=== PATIENT | female | born 1975 | race Caucasian/White ===

== ENCOUNTER 2019-08-08 21:32 | Emergency (ER) | payer BC, MEDICAID ==
[~2019-08-08] VITALS: Ht 152.4 cm; Wt 77.1 kg
[~2019-08-08 21:32] MED LIST: AZIT200S PO; [UNRECOGNIZED DRUG - CODE] PO
--- NOTE | 2019-08-08 22:00 | NUR ---
BIBHUSBAND. HEADACHE, NAUSEA, VOMITING X 2PM. DIFFICULTY BREATHING. PT REPORTS BEING ANXIOUS. VSS. NO ACUTE DISTRESS NOTED. AWAITING MD FOR EVAL.
[2019-08-08] MEDS ORDERED: ONDANSETRON HCL/PF 4 MG/2 ML VIAL ONE (22:15)
[2019-08-08] MEDS ORDERED: LORAZEPAM INJ 2 MG/ML VIAL ONE (22:15)
[2019-08-08 22:29] LABS: BASOPHILS % (AUTO) 0.2 % (0.0-2.0); EOSINOPHILS % (AUTO) 1.7 % (0.0-6.0); HEMATOCRIT 38 % (33-45); HEMOGLOBIN 12.8 g/dL (11.5-14.8); LYMPHOCYTES # (AUTO) 2.6 /CMM (0.8-4.8); LYMPHOCYTES % (AUTO) 22.2 % (20.0-44.0); MEAN CORPUSCULAR HGB CONC 34 g/dl (31.0-36.0); MEAN CORPUSCULAR VOLUME 90 fL (82-100); MONOCYTES # (AUTO) 0.6 /CMM (0.1-1.30); MONOCYTES % (AUTO) 5.1 % (2.0-12.0); NEUTROPHILS # (AUTO) 8.2 /CMM (1.8-8.9); NEUTROPHILS % (AUTO) 70.8 % (43.0-81.0); PLATELET COUNT (AUTO) 346 /CMM (150-450); RED BLOOD CELL COUNT(AUTO) 4.21 MIL/uL (4.0-5.2); WHITE BLOOD COUNT (AUTO) 11.6 K/uL (4.3-11.0)
[2019-08-08] MEDS ORDERED: IV NS 0.9% 1,000 ML BAG IV ONE (22:30)
[2019-08-08] MEDS ORDERED: LORAZEPAM INJ 2 MG/ML VIAL IV ONE (22:30)
[2019-08-08] MEDS ORDERED: ONDANSETRON HCL/PF 4 MG/2 ML VIAL IVP ONE (22:30)
--- NOTE | 2019-08-08 22:38 | NUR ---
LABS DRAW AND SENT. FLUIDS INITITATED. MEDS GIVEN, VSS.
[2019-08-08 22:45] LABS: CALCIUM, SERUM 9.3 mg/dL (8.5-10.1); CARBON DIOXIDE 28 mmol/L (21-32); CHLORIDE 101 mmol/L (98-107); CREATININE 0.6 mg/dL (0.6-1.3); GLUCOSE 109 mg/dL (74-106); POTASSIUM 4.2 mmol/L (3.5-5.1); SODIUM SERUM 138 mmol/L (136-145); UREA NITROGEN, BLOOD 10 mg/dL (7-18)
[2019-08-08 22:50] LABS: ALANINE AMINOTRANSFERASE 121 U/L (12-78); ALBUMIN 4.2 g/dL (3.4-5.0); ALKALINE PHOSPHATASE 65 U/L (46-116); ASPARTATE AMINOTRANSFERASE 47 U/L (15-37); BILIRUBIN,DIRECT 0.1 mg/dL (0.0-0.2); BILIRUBIN,TOTAL 0.4 mg/dL (0.2-1.0); TOTAL PROTEIN, SERUM 7.9 g/dL (6.4-8.2)
--- NOTE | 2019-08-08 22:58 | NUR ---
BROUGHT BACK FROM CT
--- NOTE | 2019-08-09 00:36 | NUR ---
IV removed. Catheter intact and site benign. Pressure and 4x4 applied to site. No bleeding noted. Patient discharged to home in stable condition. Written and verbal after care instructions given. Patient verbalizes understanding of instruction and RX. vss. Pt ambulatory with steady gait.
[2019-08-09 00:37] VITALS: BP 128/75
== END 2019-08-09 00:37 | disposition home or self-care (01) ==
LOC: ER 21:40
DX: R51 Headache (principal); R11.2 Nausea with vomiting, unspecified; Z90.710 Acquired absence of both cervix and uterus; Z79.899 Other long term (current) drug therapy
CPT/HCPCS: 36415; 70450; 71045; 80048; 80076; 84484; 85025; 85730; 93005; 96361; 96374; 96375; 99285; J2060; J2405; J7030

== ENCOUNTER 2020-01-06 18:14 | Emergency (ER) | payer BC ==
[~2020-01-06] VITALS: Ht 142.2 cm; Wt 79.4 kg
[2020-01-06 18:58] VITALS: BP 132/80
--- NOTE | 2020-01-06 19:45 | NUR ---
PT REFUSED COVID19 TESTING, LYN GUTIÉRREZ AWARE.
[2020-01-06 20:42] LABS: APPEARANCE,URINE Clear (CLEAR); BILIRUBIN,URINE Negative (NEGATIVE); BLOOD, URINE Moderate Ery/uL (NEGATIVE); COLOR,URINE Yellow (YELLOW); KETONES,URINE Negative (NEGATIVE); LEUKOCYTE ESTERASE ,URINE Negative (NEGATIVE); NITRITE, URINE Negative (NEGATIVE); PH,URINE 6.5 (5.0-8.0); PROTEIN,URINE Trace mg/dl (NEGATIVE); UGLUCOSE Negative (NEGATIVE); UROBILINOGEN,URINE 0.2 EU/dL (0.2)
[2020-01-06 21:05] LABS: BACTERIA,URINE Rare /HPF (None Seen); SQUAMOUS EPITHELIAL CELL,UR Few /HPF (None Seen)
[2020-01-06 21:06] LABS: WBC,URINE 0-2 /HPF (0-3)
== END 2020-01-06 22:02 | disposition home or self-care (01) ==
LOC: ER 18:17
DX: M54.6 Pain in thoracic spine (principal); Z98.890 Other specified postprocedural states; Z79.899 Other long term (current) drug therapy
CPT/HCPCS: 71045-TC; 81000-TC